=== PATIENT | male | born 1975 | race Caucasian/White ===

== ENCOUNTER 2021-04-26 22:43 | Emergency (ER) | payer SELFPAY ==
[~2021-04-26] VITALS: Ht 188 cm; Wt 79.5 kg
[2021-04-26 23:53] VITALS: BP 118/73
--- NOTE | 2021-04-26 23:53 | NUR ---
Pt with a family member in the [place] area and is in a wc d/t weakness. KESHIA Rosario with him now.
[2021-04-27] MEDS ORDERED: DEXA6TAB6 PO (00:18)
[2021-04-27] MEDS ORDERED: BENZ-16 PO (00:18)
[2021-04-27] MEDS ORDERED: ALBU8HFA PO (00:18)
[2021-04-27] MEDS ORDERED: dexamethasone 4mg tablet PO ONE (00:35)
--- NOTE | 2021-04-27 00:37 | NUR ---
pts at bedside. reports he has been weak since sunday and has hada chest cold with coughing since last week. pt with productive cough and reports "white' sputum. Reports very weak and required WC from parking lot to [facility] area.
== END 2021-04-27 02:05 | disposition home or self-care (01) ==
LOC: ER 22:44
DX: R53.1 Weakness (principal); U07.1 COVID-19; R05 Cough; R06.02 Shortness of breath; R53.83 Other fatigue; E11.9 Type 2 diabetes mellitus without complications; Z91.013 Allergy to seafood; Z79.899 Other long term (current) drug therapy
CPT/HCPCS: 71045; 82948; 87635; 99284; C9803